=== PATIENT | male | born 1965 | race Caucasian/White ===

== ENCOUNTER 2023-03-24 09:43 | Emergency (ER) | payer BC, OTHER ==
[~2023-03-24] VITALS: Ht 160 cm; Wt 58.0 kg
[2023-03-24] MEDS ORDERED: NORCO, ANEXSIA 5/325MG TABLET (HYDROcodone/ACETAMINOPHEN) PO ONE (10:40)
[2023-03-24] MEDS ORDERED: LIDOCAINE 5% (LIDODERM) PATCH TD ONE (10:40)
[2023-03-24] MEDS ORDERED: METH-1165 PO (13:04)
[2023-03-24] MEDS ORDERED: ASPE4PAD TOP (13:04)
[2023-03-24] MEDS ORDERED: TRAM50TA2 PO (13:04)
[2023-03-24 13:19] VITALS: BP 150/83
== END 2023-03-24 13:24 | disposition home or self-care (01) ==
LOC: M ED 09:43
DX: S62.306A Unspecified fracture of fifth metacarpal bone, right hand, initial encounter for closed fracture (principal); W19.XXXA Unspecified fall, initial encounter; Y92.89 Other specified places as the place of occurrence of the external cause; Y93.89 Activity, other specified; Y99.8 Other external cause status; M54.89 Other dorsalgia; M25.551 Pain in right hip; M25.511 Pain in right shoulder; M25.512 Pain in left shoulder; Z79.899 Other long term (current) drug therapy

== ENCOUNTER → 2023-03-27 | Outpatient (CLI) | payer BC ==
[~2023-03-27] MED LIST: ASPE4PAD TOP; METH-1165 PO; TRAM50TA2 PO
== END ==
LOC: M SOG 14:54
PROVIDERS: ATTEND Physician Assistant
DX: M79.641 Pain in right hand (principal)

== ENCOUNTER → 2023-04-27 | Outpatient (CLI) | payer BC | LOC: M SOG 10:27 | PROVIDERS: ATTEND Physician Assistant | DX: M79.641 Pain in right hand (principal) ==

== ENCOUNTER → 2023-04-28 | Outpatient (CLI) | payer BC | LOC: M SOG 09:37 | PROVIDERS: ATTEND Orthopaedic Surgery Hand Surgery | DX: S62.334A Displaced fracture of neck of fourth metacarpal bone, right hand, initial encounter for closed fracture (principal); W18.30XA Fall on same level, unspecified, initial encounter; Y92.009 Unspecified place in unspecified non-institutional (private) residence as the place of occurrence of the external cause ==